=== PATIENT | male | born 1995 | race Asian ===

== ENCOUNTER → 2020-07-07 | Outpatient (CLI) | payer SELFPAY ==
[2020-07-07 15:25] LABS: ALBUMIN 4.3 g/dL (3.5-5.0); POTASSIUM 3.9 mmol/L (3.5-5.1)
[2020-07-07 15:28] LABS: TOTAL PROTEIN 7.6 g/dL (6.4-8.3)
[2020-07-07 15:30] LABS: TOTAL BILIRUBIN 0.5 mg/dL (0.2-1.2)
[2020-07-07 15:36] LABS: EOS # 0.2 (0.04-0.40); HEMATOCRIT 46.2 % (42.0-52.0); LYMPH# 1.3 (1.50-4.00); MEAN CELL VOLUME 90 fl (78-100); MEAN CORPUSCULAR HEMOGLOBIN 29 pg (27-31); MEAN CORPUSCULAR HGB CONC 33 g/dL (33-37); MONO # 0.6 (0.20-0.80); NEU # 2.6 (1.40-6.50); PLATELET COUNT 142 K/mm3 (130-400); RED BLOOD COUNT 5.13 M/mm3 (4.20-5.60); RED CELL DISTRIBUTION WIDTH 12.7 % (11.5-14.5); WHITE BLOOD COUNT 4.8 K/mm3 (4.8-10.8)
[2020-07-07 15:47] LABS: MEAN PLATELET VOLUME 12.7 fl (7.4-10.4)
== END ==
LOC: LAB 14:40
PROVIDERS: Family Medicine
DX: Z00.00 Encounter for general adult medical examination without abnormal findings (principal); E78.5 Hyperlipidemia, unspecified; D82.1 Di George's syndrome

== ENCOUNTER → 2020-07-12 | Outpatient (CLI) | payer SELFPAY | LOC: RAD 11:14 | DX: M25.561 Pain in right knee (principal); M54.2 Cervicalgia; M54.5 Low back pain; Z98.1 Arthrodesis status ==

== ENCOUNTER → 2023-03-18 | Outpatient (CLI) | payer BC | LOC: RAD 10:02 | DX: S49.92XA Unspecified injury of left shoulder and upper arm, initial encounter (principal); X58.XXXA Exposure to other specified factors, initial encounter ==

== ENCOUNTER → 2024-01-02 | Outpatient (CLI) | payer BC | LOC: LAB 15:41 | DX: R04.2 Hemoptysis (principal); Z20.2 Contact with and (suspected) exposure to infections with a predominantly sexual mode of transmission ==

== ENCOUNTER → 2024-01-13 | Outpatient (CLI) | payer BC | LOC: RAD 09:00 | DX: G89.29 Other chronic pain (principal); M54.2 Cervicalgia; M54.50 Low back pain, unspecified ==

== ENCOUNTER 2024-06-21 23:11 | Emergency (ER) | payer OTHER ==
[~2024-06-21] VITALS: Wt 69.5 kg
[2024-06-21] MEDS ORDERED: Home HYDROcodone/Acetaminophen 5/325 MG #4 TABS/PACK PO ONE (23:45)
[2024-06-21 23:53] VITALS: BP 127/87
== END 2024-06-21 23:53 | disposition home or self-care (01) ==
LOC: ED 23:11
DX: L76.21 Postprocedural hemorrhage of skin and subcutaneous tissue following a dermatologic procedure (principal)